=== PATIENT | male | born 1995 | race Caucasian/White ===

== ENCOUNTER 2016-04-24 18:23 | Emergency (ER) | payer BC ==
[2016-04-24 18:23] VITALS: TEMP 36.6; O2SAT 96
[2016-04-24 18:47] LABS: BASO % 1.4 %; BASO ABS # 0.15 K/uL (0-0.2); COMPLETE YES; EOS % 4.5 %; HEMATOCRIT 40.8 % (42-52); IG% 0.3 %; LYMPH % 32.8 %; LYMPH ABS # 3.58 K/uL (1.2-3.4); MEAN CELL VOLUME 83.6 fL (80-100); MEAN CORPUSCULAR HEMOGLOBIN 30.5 pg (25-34); MEAN CORPUSCULAR HGB CONC 36.5 g/dl (32-36); MEAN PLATELET VOLUME 10.3 fL (7.4-10.4); MONO % 13.2 %; NEUT % 47.8 %; PLATELET COUNT 292 K/uL (130-400); RED BLOOD COUNT 4.88 M/uL (4.7-6.1); WHITE BLOOD COUNT 10.91 K/uL (4.8-10.8)
[2016-04-24 19:07] LABS: ALT/SGPT 32 U/L (12-78); AST/SGOT 23 U/L (15-37); BLOOD UREA NITROGEN 14 mg/dl (7-18); BUN/CREATININE RATIO 12.7 (10-20); CALCIUM 8.5 mg/dl (8.5-10.1); CARBON DIOXIDE 24 mmol/L (21-32); CHLORIDE 103 mmol/L (98-107); GLUCOSE 114 mg/dl (70-99); POTASSIUM 3.2 mmol/L (3.5-5.1); SODIUM 140 mmol/L (136-145)
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
[2016-04-24 19:10] LABS: ALB/GLOB RATIO 1.3 (0.9-2); ALKALINE PHOSPHATASE 75 U/L (45-117)
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
[2016-04-25 01:55] VITALS: BP 113/65; PULSE 103; O2SAT 100
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
== END 2016-04-25 01:57 | disposition home or self-care (01) ==
LOC: EDBD 18:23 → C.EDA 18:24
DX: R41.82 Altered mental status, unspecified (principal); F10.129 Alcohol abuse with intoxication, unspecified; Y90.8 Blood alcohol level of 240 mg/100 ml or more; S60.922A Unspecified superficial injury of left hand, initial encounter; W17.89XA Other fall from one level to another, initial encounter